=== PATIENT | male | born 1990 | race Two or more races ===

== ENCOUNTER 2019-01-01 14:04 | Emergency (ER) | payer MEDICAID ==
[~2019-01-01] VITALS: Ht 175.3 cm; Wt 167.8 kg
[2019-01-01 14:42] VITALS: BP 119/70
[2019-01-01] MEDS ORDERED: PROMETHAZINE HCL 25 MG/ML 1ML IM ONE (16:45)
[2019-01-01] MEDS ORDERED: MORPHINE SULFATE 10 MG/ML INJ 1ML SDV IM ONE (16:45)
[2019-01-01] MEDS ORDERED: HYDROmorphone HCL 2 MG/ML VL IM ONE (16:45)
== END 2019-01-01 17:40 | disposition home or self-care (01) ==
LOC: ER 14:04
DX: N20.0 Calculus of kidney (principal); R10.11 Right upper quadrant pain; F17.210 Nicotine dependence, cigarettes, uncomplicated
CPT/HCPCS: 96372; 99283; J2270; J2550